=== PATIENT | female | born 1950 | race African-American/Black ===

== ENCOUNTER 2016-08-11 18:36 | Inpatient (IN) | payer OTHER ==
[~2016-08-11] VITALS: Ht 162.6 cm; Wt 91.2 kg
[~2016-08-11 18:36] MED LIST: ASPI325T70 PO; DULO20CA PO; GLIM1TAB2 PO; METF10002 PO; VITA1CAP PO
[2016-08-11 19:45] LABS: BASO # 0.1 x10^3/uL (0.0-0.2); BASO % 1 % (0-3); EOS % 2 % (0-3); HEMATOCRIT 40.2 % (36.0-47.0); HEMOGLOBIN 13.7 g/dL (12.0-15.5); LYMPH # 3.4 x10^3/uL (1.0-4.8); LYMPH % 49 % (24-48); MEAN CORPUSCULAR HEMOGLOBIN 31 pg (25-35); MEAN CORPUSCULAR HGB CONC 34 g/dL (31-37); MEAN CORPUSCULAR VOLUME 92 fL (79-100); MONO % 11 % (0-9); NEUT % 37 % (31-73); PLATELET COUNT 270 x10^3/uL (140-400); RED BLOOD COUNT 4.37 x10^6/uL (3.50-5.40); WHITE BLOOD COUNT 6.9 x10^3/uL (4.0-11.0)
[2016-08-11 19:59] LABS: CALCIUM 9.3 mg/dL (8.5-10.1); CREATININE 0.8 mg/dL (0.6-1.0); GFR 86.3; POTASSIUM 4.1 mmol/L (3.5-5.1)
[2016-08-11] MEDS ORDERED: ONDANSETRON PF 4 MG/2 ML VIAL. IV PRN ×2 (20:15→20:45)
[2016-08-11] MEDS ORDERED: ACETAMINOPHEN 325 MG TABLET. PO PRN ×2 (20:15→20:45)
--- NOTE | 2016-08-11 20:17 | PHYS DOC ---
Past Medical History Past Medical History: Bipolar, Depression, Diabetes-Type II, High Cholesterol, Hypertension, TIA Additional Past Medical Histor: ocd,obesity, CHRONIC BACK PAIN, MANIC DEPRESSION Past Surgical History: Tonsillectomy Additional Past Surgical Histo: R MENISCUS Alcohol Use: Rarely Drug Use: None Adult General Chief Complaint Chief Complaint: WEAKNESS/GENERALIZED HPI HPI This 58-year-old female who's noted last evening some left-sided weakness in her upper and lower extremities as well as some left-sided facial numbness. These symptoms persisted throughout the day and chief called the ask a nurse help line and they stated she should come to the ER immediately. Patient states she has history of "mini strokes". Patient is in no distress at this time and is able to follow my commands. She denies any specific complaints other than subjective weakness on her left side. Review of Systems Review of Systems Constitutional: Denies fever or chills [] Eyes: Denies change in visual acuity, redness, or eye pain [] HENT: Denies nasal congestion or sore throat [] Respiratory: Denies cough or shortness of breath [] Cardiovascular: No additional information not addressed in HPI [] GI: Denies abdominal pain, nausea, vomiting, bloody stools or diarrhea [] : Denies dysuria or hematuria [] Musculoskeletal: Denies back pain or joint pain [] Integument: Denies rash or skin lesions [] Neurologic: Denies headache, focal weakness or sensory changes [] Endocrine: Denies polyuria or polydipsia [] Allergies Allergies Allergies Coded Allergies Type Severity Reaction Last Updated Verified ibuprofen Allergy Unknown "ibuprofen 600 mg makes my left eye blurry" 08/11/16 Yes Physical Exam Physical Exam Constitutional: Well developed, well nourished, no acute distress, non-toxic appearance. [] HENT: Normocephalic, atraumatic, bilateral external ears normal, oropharynx moist, no oral exudates, nose normal. [] Eyes: PERRLA, EOMI, conjunctiva normal, no discharge. [] Neck: Normal range of motion, no tenderness, supple, no stridor. [] Cardiovascular:Heart rate regular rhythm, no murmur [] Lungs & Thorax: Bilateral breath sounds clear to auscultation [] Abdomen: Bowel sounds normal, soft, no tenderness, no masses, no pulsatile masses. [] Skin: Warm, dry, no erythema, no rash. [] Back: No tenderness, no CVA tenderness. [] Extremities: No tenderness, no cyanosis, no clubbing, ROM intact, no edema. [] Neurologic: Alert and oriented X 3, normal motor function, normal sensory function, no focal deficits noted. [] Psychologic: Affect normal, judgement normal, mood normal. [] Current Patient Data Vital Signs Vital Signs Date Time Temp Pulse Resp B/P Pulse Ox O2 Delivery O2 Flow Rate FiO2 08/11/16 19:44 61 133/74 98 Room Air 08/11/16 19:14 24 08/11/16 18:36 98.6 98.6 Lab Values Laboratory Tests Test 08/11/16 18:55 White Blood Count 6.9x10^3/uL (4.0-11.0) Red Blood Count 4.37x10^6/uL (3.50-5.40) Hemoglobin 13.7g/dL (12.0-15.5) Hematocrit 40.2% (36.0-47.0) Mean Corpuscular Volume 92fL (79-100) Mean Corpuscular Hemoglobin 31pg (25-35) Mean Corpuscular Hemoglobin Concent 34g/dL (31-37) Red Cell Distribution Width 13.0% (11.5-14.5) Platelet Count 270x10^3/uL (140-400) Neutrophils (%) (Auto) 37% (31-73) Lymphocytes (%) (Auto) 49% (24-48) H Monocytes (%) (Auto) 11% (0-9) H Eosinophils (%) (Auto) 2% (0-3) Basophils (%) (Auto) 1% (0-3) Neutrophils # (Auto) 2.6x10^3uL (1.8-7.7) Lymphocytes # (Auto) 3.4x10^3/uL (1.0-4.8) Monocytes # (Auto) 0.8x10^3/uL (0.0-1.1) Eosinophils # (Auto) 0.2x10^3/uL (0.0-0.7) Basophils # (Auto) 0.1x10^3/uL (0.0-0.2) Sodium Level 138mmol/L (136-145) Potassium Level 4.1mmol/L (3.5-5.1) Chloride Level 102mmol/L (98-107) Carbon Dioxide Level 27mmol/L (21-32) Anion Gap 9 (6-14) Blood Urea Nitrogen 14mg/dL (7-20) Creatinine 0.8mg/dL (0.6-1.0) Estimated GFR (Cockcroft-Gault) 86.3 Glucose Level 204mg/dL (70-99) H Calcium Level 9.3mg/dL (8.5-10.1) Troponin I Quantitative < 0.017ng/mL (0.000-0.055) Laboratory Tests 08/11/16 18:55 Laboratory Tests 08/11/16 18:55 EKG EKG EKG as interpreted by me shows a sinus rhythm with a rate of 60 bpm. There is leftward axis. There is some mild T-wave inversion to lead V2 and V3. There is no evidence of ischemic change. Intervals are normal. There is no ectopy. Radiology/Procedures Radiology/Procedures Portable 1 view of the chest as interpreted by me does not reveal an acute cardiopulmonary process. Course & Med Decision Making Course & Med Decision Making Pertinent Labs and Imaging studies reviewed. (See chart for details) 66-year-old female with subjective left-sided weakness will be admitted to the hospital for further evaluation and treatment. Her laboratory workup at this time is negative. Her EKG and chest film were unrevealing. A CT of her head was also obtained and is still pending at this time. I will be discussing her case with the hospitalist, Dr. Carvajal, who will admit the patient for further workup. Her NIH scale on my exam 0. She is not a TPA candidate due to the duration of her symptoms being well over the window of time. Dragon Disclaimer Dragon Disclaimer This electronic medical record was generated, in whole or in part, using a voice recognition dictation system. Departure Departure Impression: Primary Impression: TIA (transient ischemic attack) Additional Impression: Left-sided weakness Referrals: MARQUITA MAC (PCP) Problem Qualifiers DIMITRY CROFT DO Aug 11, 2016 20:16
--- NOTE | 2016-08-11 20:27 | RAD ---
PROCEDURE CT head without intravenous contrast. HISTORY Left-sided headache. Left body numbness and tingling. Symptoms began previous night. TECHNIQUE Axial images are obtained of the head from the skull base through the vertex without IV contrast Exposure: One or more of the following individualized dose reduction techniques were utilized for this examination: 1. Automated exposure control. 2. Adjustment of the mA and/or kV according to patient size. 3. Use of iterative reconstruction technique. COMPARISON None. FINDINGS The ventricles are appropriate in size, shape, and location for the patient's age.No obvious intracranial mass, mass-effect, midline shift, hemorrhage or obvious acute infarction is identified.Basilar cisterns are patent. Bone windows demonstrate no acute calvarial abnormality.Incompletely seen is left maxillary sinus disease.. IMPRESSION 1. No acute intracranial process. Please note that CT can be relatively insensitive to acute ischemic infarction for up to 24 hours after symptom onset. 2. Left maxillary sinus disease. Electronically signed by: Klaus Betancourt MD (Aug 11, 2016 20:25:21)
[2016-08-11] MEDS ORDERED: ASPIRIN 325 MG TABLET PO ONE (20:30)
[2016-08-11] MEDS ORDERED: HYDROCODONE/APAP 5/325MG TABLET. PO PRN (20:45)
[2016-08-11] MEDS ORDERED: DEXTROSE 50% 25 GM / 50ML DISP.SYRIN. IV PRN (20:45)
[2016-08-11] MEDS ORDERED: hydrALAZINE 20 MG/ML VIAL. IVP PRN (20:45)
--- NOTE | 2016-08-11 20:55 | PDOC1 ---
History and Physical Date of Admission Date of Admission 08/11/16 Identification/Chief Complaint Chief Complaint left side weakness Problems: Source Source: Chart review, Patient History of Present Illness History of Present Illness HPI HPI This 58-year-old female who's noted last evening some left-sided weakness in her upper and lower extremities as well as some left-sided facial numbness since last night. Pt has had previous 4 times of "mini stroke" in the past years, pt cannot tell met the 1st and the last time. She said ever since the 1st time of stroke, she felt some left side weakness when lifting things. However, last night about 6pm, she felt left side weakness worse, even without doing laboring things, with new left side facial numbness and left headache, which feels like pounding sometimes, worse with noise , not light, and had to stop activity. PT FEEls no improvement and comes to ER. no facial droop or slurry speech. seems pt was here 09/2015 for same reason with neg BRAIN MRI. Pt not taking asa or plavix, since she dosenot like meds, prefer herbs. Past Medical History Cardiovascular: HTN Endocrine: Diabetes, Other Past Surgical History Past Surgical History knee repair Past Surgical History: Tonsillectomy Family History Family History: Family History Unknown Social History Smoke: No ALCOHOL: none Drugs: None Current Problem List Problem List Problems Medical Problems: (1) Left-sided weakness Status: Acute (2) TIA (transient ischemic attack) Status: Acute Current Medications Current Medications Current Medications Medications (Trade) Dose Ordered Sig/Mejia Start Time Stop Time Status Last Admin Dose Admin Acetaminophen (Tylenol) 650 mg PRN Q6HRS PRN 08/11/16 20:45 UNV Acetaminophen/ Hydrocodone Bitart (Lortab 5/325) 1 tab PRN Q6HRS PRN 08/11/16 20:45 UNV Aspirin (Blayne Aspirin) 325 mg 1X ONCE 08/11/16 20:30 08/11/16 20:31 DC Aspirin (Children'S Aspirin) 81 mg DAILY 08/12/16 09:00 UNV Dextrose 12.5 gm PRN Q15MIN PRN 08/11/16 20:45 UNV Insulin Aspart (Novolog) 0-9 UNITS TIDWMEALS 08/12/16 08:00 UNV Ondansetron HCl (Zofran) 4 mg PRN Q6HRS PRN 08/11/16 20:45 UNV Allergies Allergies Allergies Coded Allergies Type Severity Reaction Last Updated Verified ibuprofen Allergy Unknown "ibuprofen 600 mg makes my left eye blurry" 08/11/16 Yes ROS Review of System CONSTITUTIONAL: No fever or chills EYES: No recent changes SKIN: No rash or itching CARDIOVASCULAR: No chest pain, syncope, palpitations, or edema RESPIRATORY: No SOB or cough GASTROINTESTINAL: No nausea, vomiting or abdominal pain NEUROLOGICAL: No headaches or weakness ENDOCRINE: No cold or heat intolerance GENITOURINARY: No urgency or frequency of urination MUSCULOSKELETAL: No back pain or joint pain LYMPHATICS: No enlarged lymph nodes PSYCHIATRIC: No anxiety or depression Physical Exam Physical Exam GEN.: No apparent distress. Alert and oriented. HEENT: Head is normocephalic, atraumatic NECK: Supple. LUNGS: Clear to auscultation. HEART: RRR, S1, S2 present. Peripheral pulses intact ABDOMEN: Soft, nontender. Positive bowel sounds. EXTREMITIES: Without any cyanosis. left upper ext mild weakner than right side, 4/5. left facial less sensation. no facial droop. NEUROLOGIC: Normal speech, normal tone PSYCHIATRIC: Normal affect, normal mood. SKIN: No ulcerations Vitals Vitals Vital Signs Date Time Temp Pulse Resp B/P Pulse Ox O2 Delivery O2 Flow Rate FiO2 08/11/16 19:44 61 133/74 98 Room Air 08/11/16 19:14 24 08/11/16 18:36 98.6 98.6 Labs Labs Laboratory Tests Test 08/11/16 18:55 White Blood Count 6.9x10^3/uL (4.0-11.0) Red Blood Count 4.37x10^6/uL (3.50-5.40) Hemoglobin 13.7g/dL (12.0-15.5) Hematocrit 40.2% (36.0-47.0) Mean Corpuscular Volume 92fL (79-100) Mean Corpuscular Hemoglobin 31pg (25-35) Mean Corpuscular Hemoglobin Concent 34g/dL (31-37) Red Cell Distribution Width 13.0% (11.5-14.5) Platelet Count 270x10^3/uL (140-400) Neutrophils (%) (Auto) 37% (31-73) Lymphocytes (%) (Auto) 49% (24-48) Monocytes (%) (Auto) 11% (0-9) Eosinophils (%) (Auto) 2% (0-3) Basophils (%) (Auto) 1% (0-3) Neutrophils # (Auto) 2.6x10^3uL (1.8-7.7) Lymphocytes # (Auto) 3.4x10^3/uL (1.0-4.8) Monocytes # (Auto) 0.8x10^3/uL (0.0-1.1) Eosinophils # (Auto) 0.2x10^3/uL (0.0-0.7) Basophils # (Auto) 0.1x10^3/uL (0.0-0.2) Sodium Level 138mmol/L (136-145) Potassium Level 4.1mmol/L (3.5-5.1) Chloride Level 102mmol/L (98-107) Carbon Dioxide Level 27mmol/L (21-32) Anion Gap 9 (6-14) Blood Urea Nitrogen 14mg/dL (7-20) Creatinine 0.8mg/dL (0.6-1.0) Estimated GFR (Cockcroft-Gault) 86.3 Glucose Level 204mg/dL (70-99) Calcium Level 9.3mg/dL (8.5-10.1) Troponin I Quantitative < 0.017ng/mL (0.000-0.055) Laboratory Tests Test 08/11/16 18:55 White Blood Count 6.9x10^3/uL (4.0-11.0) Red Blood Count 4.37x10^6/uL (3.50-5.40) Hemoglobin 13.7g/dL (12.0-15.5) Hematocrit 40.2% (36.0-47.0) Mean Corpuscular Volume 92fL (79-100) Mean Corpuscular Hemoglobin 31pg (25-35) Mean Corpuscular Hemoglobin Concent 34g/dL (31-37) Red Cell Distribution Width 13.0% (11.5-14.5) Platelet Count 270x10^3/uL (140-400) Neutrophils (%) (Auto) 37% (31-73) Lymphocytes (%) (Auto) 49% (24-48) Monocytes (%) (Auto) 11% (0-9) Eosinophils (%) (Auto) 2% (0-3) Basophils (%) (Auto) 1% (0-3) Neutrophils # (Auto) 2.6x10^3uL (1.8-7.7) Lymphocytes # (Auto) 3.4x10^3/uL (1.0-4.8) Monocytes # (Auto) 0.8x10^3/uL (0.0-1.1) Eosinophils # (Auto) 0.2x10^3/uL (0.0-0.7) Basophils # (Auto) 0.1x10^3/uL (0.0-0.2) Sodium Level 138mmol/L (136-145) Potassium Level 4.1mmol/L (3.5-5.1) Chloride Level 102mmol/L (98-107) Carbon Dioxide Level 27mmol/L (21-32) Anion Gap 9 (6-14) Blood Urea Nitrogen 14mg/dL (7-20) Creatinine 0.8mg/dL (0.6-1.0) Estimated GFR (Cockcroft-Gault) 86.3 Glucose Level 204mg/dL (70-99) Calcium Level 9.3mg/dL (8.5-10.1) Troponin I Quantitative < 0.017ng/mL (0.000-0.055) VTE Prophylaxis Ordered VTE Prophylaxis Devices: Yes VTE Pharmacological Prophylaxi: Yes Assessment/Plan Assessment/Plan 1. left side weakness and facial numbness, need to rule out stroke 2. h/o mini stroke with left side weakness 3. headche, likely migraine 4. bipolar 5. HTN 6. DM2 7. HLD 8. CHronic back pain plan: 1. neuro consult 2 brain mri 3. check hba1c, LIpid panel SSI cont home meds dvt ppx cont DYLAN Smart MD Aug 11, 2016 20:55
[2016-08-11 21:15] VITALS: BP_SYST 111; BP_SYST 114; BP_DIAS 59; BP_DIAS 60
[2016-08-11 23:11] VITALS: BP 111/59
--- NOTE | 2016-08-12 00:30 | ACF ---
Admission Forms Criteria TRANSIENT ISCHEMIC ATTACK (TIA) Clinical Indications for Admission to Inpatient Care (Place 'X' for any and all applicable criteria): Admission is indicated for ANY ONE of the following(1)(2)(3)(4)(5): [ ]I. Immediate inpatient procedure is needed (eg, endarterectomy). [X]II. Inpatient admission required rather than observation care (Also use Transient Ischemic Attack (TIA): Observation Care Criteria as appropriate) because of ANY ONE of the following: [X]a) Focal neurologic signs or symptoms persist or recurring [ ]b) Cardiac arrhythmias of immediate concern [ ]c) Clinically significant cardiac disorder identified that requires inpatient care (eg, severe valvular disease, atrial myxoma, cardiomyopathy) [ ]d) Hypertension requiring inpatient treatment [ ]e) Parenteral anticoagulation required (eg, alternative forms of anticoagulation not appropriate or not feasible) as indicated by ALL of the following(13): [ ]i) Temporary subtherapeutic anticoagulation unacceptable because of high risk of short-term venous or arterial thromboembolism due to ANY ONE of the following(14)(15)(16): [ ]1) Atrial fibrillation suspected as etiology of TIA(17)(18)(19)(20)(21) [ ]2) Venous thromboembolism within past 12 months [ ]3) Underlying malignancy [ ]4) Patient with mechanical cardiac valve(22)( 23) [ ]5) Underlying hypercoagulable state (eg, protein C or protein S deficiency antithrombin deficiency, antiphospholipid antibodies) [ ]6) Patient at temporary high risk of thromboembolism (eg, status post orthopedic surgery) [ ]ii) Contraindications to outpatient use of "bridging" agent or alternative oral anticoagulant[B] as indicated by ALL of the following: [ ]1) Contraindication to outpatient use of low- molecular-weight heparin as "bridging" agent as indicated by ANY ONE of the following(15): [ ]A. Documented current or history of heparin-induced thrombocytopenia(24) [ ]B. Severe thrombocytopenia (eg, platelet count less than 50,000/mm3 (44v360/L) [ ]C. Documented allergy to heparin, low- molecular-weight heparin, or pork products [ ]D. Renal failure (creatinine clearance less than 30 mL/min/1.73m2 (0.50mL/sec/1.73m2) or on dialysis) [ ]E. Inability to manage self-injection ( eg, by patient, caregiver, or visiting nurse) [ ]2) Contraindication to outpatient use of fondaparinux as "bridging" agent as indicated by ANY ONE of the following(25)(26 )(27)(28): [ ]A. Severe thrombocytopenia (eg, platelet count less than 50,000/mm3 (50 x109/L)) [ ]B.Hypersensitivity to fondaparinux, related drugs, or product components [ ]C.Renal failure (creatinine clearance less than 30 mL/min/1.73m2 (0.50mL/sec/1.73m2) or on dialysis) [ ]D.Inability to manage self-injection ( eg, by patient, caregiver, or visiting nurse [ ]3. Oral direct thrombin inhibitor (eg, dabigatran) or oral coagulation factor Xa inhibitor (eg, rivaroxaban, apixaban) not appropriate as oral anticoagulation (eg, indication not appropriate) or contraindicated (eg, hypersensitivity, creatinine clearance less than 15 mL/min/1.73m2 ( 0.25 mL/sec/1.73m2) or on dialysis). [ ]f) Continuous IV infusion of anticoagulant, platelet inhibitor, vasoactive or antiarrhythmia(18)(19) [ ]g) Other condition, treatment, or monitoring requiring inpatient admission [ ]III. Contraindications and/or Inappropriate clinical situations for Observational Care in patients with Transient Ischemic Attack (TIA), when ANY ONE of the following is required: [ ]a) Patient with persistent or severe neurological deficit 24 [ ]b) Patient with acute CVA or other identified pathology should be admitted to inpatient for further care 25 [ ]IV. General contraindications and/or Inappropriate clinical situations for Observational Care in patients with Transient Ischemic Attack (TIA), when ANY ONE of the following is required: [ ]a) Prediction of prolongation of LOS based on ANY ONE of the following may be considered as a contraindication for observational care 2, 3, 4, 5, 6, 7, 8, 9, 10, 11 [ ]i) Age > 65 yrs. [ ]ii) Patient arriving by ambulance [ ]iii) Patient with high acuity [ ]iv) Patient requiring vital sign monitoring [ ]v) Patient on IV medication [ ]b) Systolic blood pressures 180mmHg 3,12 [ ]c) Patient with altered mental status including delirium and other alteration of consciousness, (3) [ ]d) Patient whose discharge disposition will be to a [facility] home or rehabilitation home should not be managed in Emergency Department Observation Unit. CMS rule requires 3 days hospital stay before such placement.3,13 [ ]e) Patient with failure to thrive due to broad array of etiologies 3,16,17 [ ]f) Inability to ambulate 3,14 Extended stay beyond goal length of stay may be needed for(4)(30)(32): [ ]a) Parenteral anticoagulation required [ ]b) Dangerous arrhythmia [ ]c) Cardiac valvular disorder, atrial myxoma, cardiomyopathy [ ]d) Uncontrolled severe hypertension [ ]e) Severe carotid stenosis [ ]f) Active comorbidities (eg, heart failure) [ ]g) Extracranial vertebrobasilar disease(29) [ ]h) Clinical evolution of TIA into cerebrovascular accident (stroke) The original [facility] content created by [employer] ??? has been revised. The portions of thecontent which have been revised are identified through the use of italic text or in bold, and [facility] has neither reviewed nor approved the modified material. All other unmodified content is copyright [facility]. Please see references footnoted in the original [facility] edition 2016 Admission Criteria Met?: Yes KARI ISSA Aug 12, 2016 00:30
[2016-08-12 03:12] VITALS: BP 98/45
--- NOTE | 2016-08-12 06:31 | EKG ---
[facility] [address] [place] [address] Test Date: 2016-08-11 Test Time: 19:16:54 Pat Name: BRUNO GUTIERREZ Department: Room: [facility] Gender: F [employer] Developer: : [id number] Requested By: DIMITRY CROFT Order Number: [id number] Reading MD: Ludmila Mccormick Measurements Intervals [place] Rate: 60 P: 0 CO: 212 QRS: -3 QRSD: 88 T: 16 QT: 412 QTc: 412 Interpretive Statements SINUS RHYTHM OTHERWISE NORMAL ECG RI6.01 No previous ECG available for comparison Electronically Signed On 08-13-2016 0:42:00 [employer]SELOR [employer]ID by Ludmila Mccormick
[2016-08-12 06:42] LABS: BASO # 0.1 x10^3/uL (0.0-0.2); BASO % 1 % (0-3); EOS % 3 % (0-3); HEMATOCRIT 38.4 % (36.0-47.0); HEMOGLOBIN 12.8 g/dL (12.0-15.5); LYMPH # 3.7 x10^3/uL (1.0-4.8); LYMPH % 52 % (24-48); MEAN CORPUSCULAR HEMOGLOBIN 31 pg (25-35); MEAN CORPUSCULAR HGB CONC 33 g/dL (31-37); MEAN CORPUSCULAR VOLUME 94 fL (79-100); MONO % 10 % (0-9); NEUT % 35 % (31-73); PLATELET COUNT 238 x10^3/uL (140-400); RED BLOOD COUNT 4.09 x10^6/uL (3.50-5.40); RED CELL DISTRIBUTION WIDTH 13.2 % (11.5-14.5); WHITE BLOOD COUNT 7.2 x10^3/uL (4.0-11.0)
[2016-08-12 07:00] VITALS: BP 96/65
[2016-08-12 07:00] LABS: CALCIUM 8.6 mg/dL (8.5-10.1); CREATININE 0.9 mg/dL (0.6-1.0); GFR 75.3; POTASSIUM 4.2 mmol/L (3.5-5.1)
[2016-08-12 07:02] LABS: CHOLESTEROL/HDL RATIO 3.9
[2016-08-12] MEDS ORDERED: INSULIN ASPART 300 UNITS/3 ML INSULN.PEN SQ SCH (08:00)
[2016-08-12] MEDS ORDERED: GLIMEPIRIDE 2 MG TABLET PO SCH (08:00)
[2016-08-12] MEDS ORDERED: ASPIRIN 81 MG TAB.CHEW PO SCH (08:00)
[2016-08-12] MEDS: METFORMIN 1,000 MG TABLET PO SCH ×2 (08:35→17:46)
--- NOTE | 2016-08-12 08:39 | RAD ---
Portable AP upright view CXR: 1950 on August 11, 2016 Comparison: October 03, 2015. Clinical indications: Left-sided weakness. History of strokes.. Findings: No acute lung infiltrate or pleural effusion or pulmonary edema or lung mass or pneumothorax is seen. The heart size, pulmonary vasculature, mediastinum and both mitchell are unremarkable. Impression: No acute radiographic abnormality is seen.
[2016-08-12] MEDS: INSULIN ASPART 300 UNITS/3 ML INSULN.PEN SQ SCH ×3 (08:42→17:52)
[2016-08-12] MEDS ORDERED: FLU VACC QUAD 2016-17 (36MOS+)/PF 0.5 ML SYRINGE. VAX IM ONE (09:00)
[2016-08-12] MEDS ORDERED: VITAMIN B COMPLEX TABLET. PO SCH (09:00)
[2016-08-12] MEDS ORDERED: DULOXETINE HCL 20 MG CAPSULE.DR PO SCH (09:00)
[2016-08-12] MEDS ORDERED: ENOXAPARIN 40 MG/0.4 ML DISP.SYRIN. SQ SCH (09:00)
[2016-08-12] MEDS ORDERED: INFLUENZA VAX SCREEN BY RX. MC ONE (09:00)
--- NOTE | 2016-08-12 10:14 | RAD ---
PROCEDURE MRI brain without contrast. HISTORY Left-sided weakness for 2 days, history of previous stroke in 2015 TECHNIQUE Sagittal and axial T1, axial and coronal T2, axial diffusion, axial FLAIR, and axial gradient echo T2 weighted images were acquired of the brain. COMPARISON October 04, 2015 FINDINGS There is mild motion. There is no restricted diffusion suggestive of a recent infarct or cytotoxic edema. There is no intra-axial mass effect, midline shift, extra-axial fluid collection. Ventricular size is stable, within normal limits. Cerebral volume is considered within normal limits. There are again several small foci of T2 and FLAIR hyperintense signal abnormality of the supratentorial white matter in a bilateral distribution, overall similar in extent. There is no significant hemosiderin deposition of the brain parenchyma. Cerebellar tonsils are normal in location. There is preservation of marrow signal of the clivus. There is no significant abnormality of the small pituitary gland or pineal gland. There has been lens surgery bilaterally. There is a small air-fluid level of the left maxillary sinus, although present previously. There is patchy very minimal ethmoid air cell mucosal thickening. Mastoid air cells are aerated. IMPRESSION 1. There is no evidence of recent infarct or intracranial mass effect. Scattered relatively mild T2 and FLAIR hyperintense signal abnormality of the supratentorial white matter is similar, nonspecific findings which may be due to chronic microvascular ischemic disease. 2. There is again air-fluid level of the left maxillary sinus, acute sinusitis a possibility. Electronically signed by: Miguelito Gonzalez MD (Aug 12, 2016 10:13:35)
[2016-08-12 10:53] VITALS: BP 96/57
--- NOTE | 2016-08-12 11:19 | PDOC2 ---
NEUROLOGY CONSULT Date of Admission Date of Admission DATE: 08/12/16 TIME: 11:10 Reason for Consult Reason for Consult: Stroke symptoms Referring Physician Referring Physician: Dr. Carvajal PCP: Dr. Buckley Source Source: Caregiver, Chart review, Patient History of Present Illness History of Present Illness The patient is a 66-year-old right-handed female who 2 nights ago noted left sided numbness and weakness. She had a headache. She came in yesterday since the symptoms persisted. She was here in September with the same symptoms with a negative brain MRI but further stroke workup was not done. The patient says that she has had a total of 4 "mini strokes." These are often associated with headaches. She does describe severe headaches in the past but was never diagnosed with migraine. She has a history of petit mal seizures as a child which stopped at age 12. She has had no significant head injuries. She feels fine now. Past Medical History Cardiovascular: HTN, Hyperlipidemia CENTRAL NERVOUS SYSTEM: TIA Psych: Bipolar, Other (obsessive-compulsive disorder) Musculoskeletal: low back pain Endocrine: Diabetes Past Surgical History Past Surgical History: Tonsillectomy Family History Family History: Cancer, CVA Social History Social History She finished college, but describes cognitive problems which have left her disabled, apparently from her psychiatric disorder. She does not use alcohol, tobacco, or drugs. She lives with her son. Current Medications Current Medications Current Medications Ondansetron HCl (Zofran) 4 mg PRN Q8HRS PRN IV NAUSEA/VOMITING; Start 08/11/16 at 20:15; Stop 08/12/16 at 10:51; Status DC Acetaminophen (Tylenol) 650 mg PRN Q4HRS PRN PO FEVER; Start 08/11/16 at 20:15 ; Stop 08/12/16 at 10:51; Status DC Aspirin (Blayne Aspirin) 325 mg 1X ONCE PO Last administered on 08/11/16t 20:57 ; Start 08/11/16 at 20:30; Stop 08/11/16 at 20:31; Status DC Aspirin (Children'S Aspirin) 81 mg DAILY08 PO Last administered on 08/12/16t 08 :36; Start 08/12/16 at 08:00 Acetaminophen (Tylenol) 650 mg PRN Q6HRS PRN PO FEVER; Start 08/11/16 at 20:45 Ondansetron HCl (Zofran) 4 mg PRN Q6HRS PRN IV NAUSEA/VOMITING; Start 08/11/16 at 20:45 Acetaminophen/ Hydrocodone Bitart (Lortab 5/325) 1 tab PRN Q6HRS PRN PO PAIN; Start 08/11/16 at 20:45 Insulin Aspart (Novolog) 0-9 UNITS TIDWMEALS SQ ; Start 08/12/16 at 08:00; Stop 08/12/16 at 08:00; Status DC Dextrose 12.5 gm PRN Q15MIN PRN IV SEE COMMENTS; Start 08/11/16 at 20:45 Insulin Aspart (Novolog) 0-9 UNITS QIDACHS SQ Last administered on 08/12/16 08 :42; Start 08/12/16 at 08:00 Hydralazine HCl (Apresoline) 10 mg PRN Q4HRS PRN IVP ELEVATED BP, SEE COMMENTS ; Start 08/11/16 at 20:45 Enoxaparin Sodium (Lovenox 40mg Syringe) 40 mg DAILY SQ Last administered on 08:35; Start 08/12/16 at 09:00 Duloxetine HCl (Cymbalta) 20 mg DAILY PO Last administered on 08/12/16 08:31; Start 08/12/16 at 09:00 Metformin HCl (Glucophage) 1,000 mg BIDWMEALS PO Last administered on 08:35; Start 08/12/16 at 08:00 Glimepiride (Amaryl) 1 mg DAILY08 PO Last administered on 08/12/16 08:35; Start 08/12/16 at 08:00; Stop 08/12/16 at 10:45; Status DC Vitamin B Complex (Jovan B) 1 tab DAILY PO Last administered on 08/12/16 08:34 ; Start 08/12/16 at 09:00 Info (Do NOT chart on this placeholder) 0.5 each 1X ONCE MC ; Start 08/12/16 at 09:00; Stop 08/12/16 at 09:01; Status UNV Influenza Virus Vaccine Quadrival (Fluarix Quad [id number] Syringe) 0.5 ml ONCE ONCE VAX IM ; Start 08/12/16 at 09:00; Stop 08/12/16 at 09:01; Status DC Glimepiride (Amaryl) 2 mg DAILY08 PO ; Start 08/13/16 at 08:00 Atorvastatin Calcium (Lipitor) 40 mg QHS PO ; Start 08/12/16 at 21:00 Active Scripts Active Aspirin Buffered 325 Mg Tab (Aspirin/Calcium Carbonate/Mag) 325 Mg Tablet 325 Mg PO DAILY Cymbalta (Duloxetine Hcl) 20 Mg Capsule.dr 1 Cap PO DAILY Reported Vitamin B Complex 1 Each Capsule 1 Each PO BID Glimepiride 1 Mg Tablet 1 Tab PO DAILY Metformin Hcl 1,000 Mg Tablet 1 Tab PO BID Allergies Allergies: Coded Allergies: ibuprofen (Verified Allergy, Intermediate, "ibuprofen 600 mg makes my left eye blurry", 08/12/16) ROS Review of System Patient denies fevers, chills, weight loss, dyspnea, angina, abdominal pain, change in bowels, or dysuria. 14 point review of systems is negative. Physical Exam Physical Examination PHYSICAL EXAMINATION: Vital signs: see above. General appearance is normal and in no acute distress. HEENT: Normocephalic and nontraumatic. Eyes, nose, ears, and throat are unremarkable. Neck is supple. No lymphadenopathy. No bruits are heard over the carotid artery. No crepitus. NEUROLOGICAL EXAMINATION: Mental Status Examination: Alert. Oriented to time, place, and person. Answers questions and follows commends. Pupils are equal round and reactive to light and accommodation. Funduscopic exam: No papilledema. Extraocular movements are intact. Visual field exam shows no defect on the direct confrontation. No motor or sensory deficits on the facial exam. Uvula in the midline and the soft palate elevated symmetrically. No deviation of the tongue to any direction. Gross hearing is normal. Shoulder shrug normal. Muscle tone is normal. Muscle strength is 5. Deep tendon reflexes are 2+ all around. Plantar reflex is with flexion response bilaterally. [id number] test performance is accurate. Tandem walk test is accurate. Alternative movements are accurate. Romberg test is negative. Gait is normal. Sensory exam shows stocking loss. No cerebellar signs are elicited. Vitals VITALS Vital Signs Date Time Temp Pulse Resp B/P Pulse Ox O2 Delivery O2 Flow Rate FiO2 08/12/16 10:53 97.7 77 14 96/57 98 Room Air 97.7 Labs Labs Laboratory Tests Test 08/11/16 18:55 08/11/16 22:25 08/12/16 05:45 08/12/16 08:25 White Blood Count 6.9x10^3/uL (4.0-11.0) 7.2x10^3/uL (4.0-11.0) Red Blood Count 4.37x10^6/uL (3.50-5.40) 4.09x10^6/uL (3.50-5.40) Hemoglobin 13.7g/dL (12.0-15.5) 12.8g/dL (12.0-15.5) Hematocrit 40.2% (36.0-47.0) 38.4% (36.0-47.0) Mean Corpuscular Volume 92fL (79-100) 94fL (79-100) Mean Corpuscular Hemoglobin 31pg (25-35) 31pg (25-35) Mean Corpuscular Hemoglobin Concent 34g/dL (31-37) 33g/dL (31-37) Red Cell Distribution Width 13.0% (11.5-14.5) 13.2% (11.5-14.5) Platelet Count 270x10^3/uL (140-400) 238x10^3/uL (140-400) Neutrophils (%) (Auto) 37% (31-73) 35% (31-73) Lymphocytes (%) (Auto) 49% (24-48) 52% (24-48) Monocytes (%) (Auto) 11% (0-9) 10% (0-9) Eosinophils (%) (Auto) 2% (0-3) 3% (0-3) Basophils (%) (Auto) 1% (0-3) 1% (0-3) Neutrophils # (Auto) 2.6x10^3uL (1.8-7.7) 2.5x10^3uL (1.8-7.7) Lymphocytes # (Auto) 3.4x10^3/uL (1.0-4.8) 3.7x10^3/uL (1.0-4.8) Monocytes # (Auto) 0.8x10^3/uL (0.0-1.1) 0.7x10^3/uL (0.0-1.1) Eosinophils # (Auto) 0.2x10^3/uL (0.0-0.7) 0.2x10^3/uL (0.0-0.7) Basophils # (Auto) 0.1x10^3/uL (0.0-0.2) 0.1x10^3/uL (0.0-0.2) Sodium Level 138mmol/L (136-145) 137mmol/L (136-145) Potassium Level 4.1mmol/L (3.5-5.1) 4.2mmol/L (3.5-5.1) Chloride Level 102mmol/L (98-107) 102mmol/L (98-107) Carbon Dioxide Level 27mmol/L (21-32) 27mmol/L (21-32) Anion Gap 9 (6-14) 8 (6-14) Blood Urea Nitrogen 14mg/dL (7-20) 14mg/dL (7-20) Creatinine 0.8mg/dL (0.6-1.0) 0.9mg/dL (0.6-1.0) Estimated GFR (Cockcroft-Gault) 86.3 75.3 Glucose Level 204mg/dL (70-99) 242mg/dL (70-99) Calcium Level 9.3mg/dL (8.5-10.1) 8.6mg/dL (8.5-10.1) Troponin I Quantitative < 0.017ng/mL (0.000-0.055) Glucose (Fingerstick) 245mg/dL (70-99) 233mg/dL (70-99) Triglycerides Level 142mg/dL (0-150) Cholesterol Level 225mg/dL (0-200) LDL Cholesterol, Calculated 140mg/dL (0-100) VLDL Cholesterol, Calculated 28mg/dL (0-40) HDL Cholesterol 57mg/dL (40-60) Cholesterol/HDL Ratio 3.9 Laboratory Tests Test 08/11/16 18:55 08/11/16 22:25 08/12/16 05:45 08/12/16 08:25 White Blood Count 6.9x10^3/uL (4.0-11.0) 7.2x10^3/uL (4.0-11.0) Red Blood Count 4.37x10^6/uL (3.50-5.40) 4.09x10^6/uL (3.50-5.40) Hemoglobin 13.7g/dL (12.0-15.5) 12.8g/dL (12.0-15.5) Hematocrit 40.2% (36.0-47.0) 38.4% (36.0-47.0) Mean Corpuscular Volume 92fL (79-100) 94fL (79-100) Mean Corpuscular Hemoglobin 31pg (25-35) 31pg (25-35) Mean Corpuscular Hemoglobin Concent 34g/dL (31-37) 33g/dL (31-37) Red Cell Distribution Width 13.0% (11.5-14.5) 13.2% (11.5-14.5) Platelet Count 270x10^3/uL (140-400) 238x10^3/uL (140-400) Neutrophils (%) (Auto) 37% (31-73) 35% (31-73) Lymphocytes (%) (Auto) 49% (24-48) 52% (24-48) Monocytes (%) (Auto) 11% (0-9) 10% (0-9) Eosinophils (%) (Auto) 2% (0-3) 3% (0-3) Basophils (%) (Auto) 1% (0-3) 1% (0-3) Neutrophils # (Auto) 2.6x10^3uL (1.8-7.7) 2.5x10^3uL (1.8-7.7) Lymphocytes # (Auto) 3.4x10^3/uL (1.0-4.8) 3.7x10^3/uL (1.0-4.8) Monocytes # (Auto) 0.8x10^3/uL (0.0-1.1) 0.7x10^3/uL (0.0-1.1) Eosinophils # (Auto) 0.2x10^3/uL (0.0-0.7) 0.2x10^3/uL (0.0-0.7) Basophils # (Auto) 0.1x10^3/uL (0.0-0.2) 0.1x10^3/uL (0.0-0.2) Sodium Level 138mmol/L (136-145) 137mmol/L (136-145) Potassium Level 4.1mmol/L (3.5-5.1) 4.2mmol/L (3.5-5.1) Chloride Level 102mmol/L (98-107) 102mmol/L (98-107) Carbon Dioxide Level 27mmol/L (21-32) 27mmol/L (21-32) Anion Gap 9 (6-14) 8 (6-14) Blood Urea Nitrogen 14mg/dL (7-20) 14mg/dL (7-20) Creatinine 0.8mg/dL (0.6-1.0) 0.9mg/dL (0.6-1.0) Estimated GFR (Cockcroft-Gault) 86.3 75.3 Glucose Level 204mg/dL (70-99) 242mg/dL (70-99) Calcium Level 9.3mg/dL (8.5-10.1) 8.6mg/dL (8.5-10.1) Troponin I Quantitative < 0.017ng/mL (0.000-0.055) Glucose (Fingerstick) 245mg/dL (70-99) 233mg/dL (70-99) Triglycerides Level 142mg/dL (0-150) Cholesterol Level 225mg/dL (0-200) LDL Cholesterol, Calculated 140mg/dL (0-100) VLDL Cholesterol, Calculated 28mg/dL (0-40) HDL Cholesterol 57mg/dL (40-60) Cholesterol/HDL Ratio 3.[address] head: 1. No acute intracranial process. Please note that CT can be relatively insensitive to acute ischemic infarction for up to 24 hours after symptom onset. 2. Left maxillary sinus disease. MRI brain: 1. There is no evidence of recent infarct or intracranial mass effect. Scattered relatively mild T2 and FLAIR hyperintense signal abnormality of the supratentorial white matter is similar, nonspecific findings which may be due to chronic microvascular ischemic disease. 2. There is again air-fluid level of the left maxillary sinus, acute sinusitis a possibility. Carotid Dopplers, negative to my eye, radiology interpretation pending Assessment/Plan Assessment/Plan Impression: Stroke symptoms, negative workup so far here as well as in March, I wonder if the symptoms are related to migraine as she does have associated headache. Psychogenic cause is possible Diabetic neuropathy Psychiatric disease to the point where she became disabled due to cognitive problems Sinus disease on imaging studies. Recommendations: MRI, carotid Dopplers, already done, awaiting echocardiogram She has been on Plavix in the past but prefers not to take medicines. I encouraged her to resume Plavix. Rehabilitation evaluation Discharge as soon as later today if rehabilitation evaluation and the rest of her studies are negative. Follow-up with neurology as needed. Treatment of sinus disease per primary service. This appears to be asymptomatic. Thank you for letting me help with the patient's care. ITALIA HODGES MD Aug 12, 2016 11:19
[2016-08-12] MEDS ORDERED: DULO20CA PO (11:36)
[2016-08-12] MEDS ORDERED: ATOR40TA59 PO (11:36)
[2016-08-12] MEDS ORDERED: GLIM2TAB PO (11:36)
[2016-08-12] MEDS ORDERED: METF10002 PO (11:36)
[2016-08-12] MEDS ORDERED: CLOP75TA PO (11:36)
[2016-08-12] MEDS ORDERED: VITA1TAB3 PO (11:36)
[2016-08-12] MEDS ORDERED: CLOPIDOGREL BISULFATE 75 MG TABLET PO SCH (12:00)
--- NOTE | 2016-08-12 12:02 | RAD ---
Indication TIA. Grayscale color Doppler and spectral imaging was performed. The examination was targeted to the carotid bifurcations. The examination in the left neck is limited. The patient had a high bifurcation on the left. On the right there was no significant plaquing. The color Doppler images do not suggest significant turbulence. The external carotid has a normal appearance. The internal carotid waveform and velocities are normal. The vertebral is patent and demonstrates normal antegrade flow. On the left the color Doppler images do not suggest significant turbulence. Marked atherosclerotic disease is not seen. The common carotid waveform and velocities are unremarkable. Those very limited portions of the external and internal carotid arteries which were seen appeared grossly normal. The vertebral is seen and demonstrates normal antegrade flow. IMPRESSION: Significantly limited evaluation of the left carotid bifurcation secondary to the high nature of the bifurcation. Definite significant disease on the left was not seen. No evidence of hemodynamically significant stenosis at the right carotid bifurcation Note: Stenosis calculations for CT, MR and conventional angiography are based upon determination of the distal ICA diameter in accordance with the NASCET methodology. Stenosis calculations for doppler studies are derived from validated velocity criteria which are known to correlate with NASCET methodology of determining stenosis.
--- NOTE | 2016-08-12 12:29 | PDOC3 ---
Discharge Summary [facility] Date of Admission: Aug 11, 2016 Discharge Date: Aug 12, 2016 Admitting Diagnosis 1. left side weakness and facial numbness , could be 2/2 migraine or psychogenic 2. h/o mini stroke with left side weakness 3. headche, likely migraine 4. bipolar 5. HTN 6. DM2 7. HLD 8. CHronic back pain 9. NON compliant with meds Problems: Final Diagnosis Problems Medical Problems: (1) Left-sided weakness Status: Acute (2) TIA (transient ischemic attack) Status: Acute CONSULTS [facility] Brief Hospital Course This 58-year-old female who's noted last evening some left-sided weakness in her upper and lower extremities as well as some left-sided facial numbness since last night. Pt has had previous 4 times of "mini stroke" in the past years, pt cannot tell met the 1st and the last time. She said ever since the 1st time of stroke, she felt some left side weakness when lifting things. However, last night about 6pm, she felt left side weakness worse, even without doing laboring things, with new left side facial numbness and left headache, which feels like pounding sometimes, worse with noise , not light, and had to stop activity. PT FEEls no improvement and comes to ER. no facial droop or slurry speech. seems pt was here 09/2015 for same reason with neg BRAIN MRI. Pt not taking asa or plavix nor other meds for DM2 since she dosenot like meds, prefer herbs. PT FEEls better today, sill mild left side weakness and facial numbness, but exam is better MRI brain neg, carotid US neg. Echo pending. dc home after Echo, with plavix, lipitor, meds for DM2. asked pt and her son many times she needs totake her meds. dc time 35min GEN.: No apparent distress. Alert and oriented. HEENT: Head is normocephalic, atraumatic NECK: Supple. LUNGS: Clear to auscultation. HEART: RRR, S1, S2 present. Peripheral pulses intact ABDOMEN: Soft, nontender. Positive bowel sounds. EXTREMITIES: Without any cyanosis. left upper ext mild weakner than right side, 4/5. left facial less sensation. no facial droop. NEUROLOGIC: Normal speech, normal tone PSYCHIATRIC: Normal affect, normal mood. SKIN: No ulcerations Patient History: Problems: Disposition home CONDITION AT DISCHARGE: Improved, Stable Diet regular Scheduled Atorvastatin Calcium (Atorvastatin Calcium) 40 MG PO QHS Clopidogrel Bisulfate (Clopidogrel) 75 MG PO DAILYWBKFT Duloxetine Hcl (Cymbalta) 20 MG PO DAILY Glimepiride (Amaryl) 1 MG PO DAILY08 Metformin Hcl (Metformin Hcl) 1,000 MG PO BIDWMEALS Vitamin B Complex (Vitamin B Complex) 1 TAB PO DAILY Discontinued Medications Aspirin/Calcium Carbonate/Mag (Aspirin Buffered 325 Mg Tab) 325 MG PO DAILY Duloxetine Hcl (Cymbalta) 1 CAP PO DAILY Glimepiride (Glimepiride) 1 TAB PO DAILY (Reported) Metformin Hcl (Metformin Hcl) 1 TAB PO BID (Reported) Vitamin B Complex (Vitamin B Complex) 1 EACH PO BID (Reported) Follow Up pcp and neuro in 2 weeks DYLAN VAZQUEZ MD Aug 12, 2016 12:29
[2016-08-12 15:05] VITALS: BP 115/68
--- NOTE | 2016-08-12 15:52 | CARD ---
APPROVED REPORT EXAM: Two-dimensional and M-mode echocardiogram with Doppler and color Doppler. Other Information Quality : Average Rhythm : NSR INDICATION CVA/TIA Echo Enhancing Agent Indication: Rule Out Septal Defect Agent/Amount Used: Agitated Saline 8mL 2D DIMENSIONS RVDd2.4 (2.9-3.5cm)Left Atrium(2D)3.0 (1.6-4.0cm) IVSd1.2 (0.7-1.1cm)Aortic Root(2D)2.7 (2.0-3.7cm) LVDd3.8 (3.9-5.9cm)LVOT Diameter2.0 (1.8-2.4cm) PWd1.2 (0.7-1.1cm)LVDs2.3 (2.5-4.0cm) FS (%) 29.8 %SV45.1 ml LVEF(%)61.1 (>50%) Aortic Valve AoV Peak Shayan.111.7cm/sAoV VTI18.6cm AO Peak GR.5.0mmHgLVOT Peak Shayan.80.6cm/s LVOT VTI 16.57cmAO Mean GR.3mmHg MARIA LUISA (VMAX)2.61ws9ZOP (VTI)2.92cm2 Mitral Valve MV E Ghxckhgy24.1cm/sMV DECEL [id number] MV A Flzsihzi97.8cm/sMV E Mean Gr.1mmHg MV XJH492hgP/A Ratio0.8 MV A [id number] (PHT)1.86cm2 TDI E/Lateral E'8.0E/Medial E'6.9 Pulmonary Valve PV Peak Gxjjqhlh20.7cm/sPV Peak Grad.2mmHg RVOT VTI11.0cm Tricuspid Valve TR P. [id number]/sRAP [id number] TR Peak Gr.63snHzGAFI92alCq LEFT VENTRICLE The left ventricle is normal size. There is borderline concentric left ventricular hypertrophy. Left ventricle systolic function is normal. The Ejection Fraction is 60-65%. There is normal LV segmental wall motion. Tissue Doppler imaging reveals mild left ventricular diastolic dysfunction. RIGHT VENTRICLE The right ventricle is normal size. The right ventricular systolic function is normal. ATRIA The left atrium size is normal. The right atrium size is normal. The interatrial septum is intact wit h no evidence for an atrial septal defect or patent foramen ovale as noted on 2-D or Doppler imaging. Injection of bubbles did not document an interatrial shunt. AORTIC VALVE The aortic valve is normal in structure and function. The aortic valve is trileaflet. Doppler and Col or Flow revealed no significant aortic regurgitation. There is no significant aortic valvular stenosi s. MITRAL VALVE The mitral valve is normal in structure and function. There is no mitral valve stenosis. Doppler and Color Flow revealed no mitral valve regurgitation noted. TRICUSPID VALVE The tricuspid valve is normal in structure and function. Doppler and Color Flow revealed trace to mil d tricuspid regurgitation. The PA pressure was estimated at 29 mmHg. There is no tricuspid valve sten osis. PULMONIC VALVE The pulmonic valve is not well visualized. Doppler and Color Flow revealed no pulmonic valvular regur gitation. There is no pulmonic valvular stenosis. GREAT VESSELS The aortic root is normal in size. Pulmonary veins not well visualized. The IVC is normal in size and collapses >50% with inspiration. PERICARDIAL EFFUSION There is no evidence of significant pericardial effusion. Critical Notification Critical Value: No <Conclusion> Left ventricle systolic function is normal. The Ejection Fraction is 60-65%. There is normal LV segmental wall motion. Negative bubble study. No significant valvular disease.
[2016-08-12] MEDS ORDERED: ATORVASTATIN CALCIUM 40 MG TABLET. PO SCH (21:00)
[2016-08-13] MEDS ORDERED: GLIMEPIRIDE 2 MG TABLET PO SCH ×2 (08:00)
== END 2016-08-12 18:45 | disposition home or self-care (01) | DRG 103 ==
LOC: ER 18:36 → 6 SOUTH 20:07
PROVIDERS: ADMIT Internal Medicine; ATTEND Internal Medicine
DX: G43.909 Migraine, unspecified, not intractable, without status migrainosus (principal); E78.00 Pure hypercholesterolemia, unspecified; E78.5 Hyperlipidemia, unspecified; F42.9 Obsessive-compulsive disorder, unspecified; G89.29 Other chronic pain; E66.9 Obesity, unspecified; E11.40 Type 2 diabetes mellitus with diabetic neuropathy, unspecified; F32.9 Major depressive disorder, single episode, unspecified; M54.5 Low back pain; I10 Essential (primary) hypertension; Z82.3 Family history of stroke; Z86.73 Personal history of transient ischemic attack (TIA), and cerebral infarction without residual deficits; Z91.14 Patient's other noncompliance with medication regimen; Z68.34 Body mass index [BMI] 34.0-34.9, adult; Z98.890 Other specified postprocedural states; Z88.8 Allergy status to other drugs, medicaments and biological substances
CPT/HCPCS: 99285; C8929; 36415; 70450; 70551; 71010; 80048; 80061; 82947; 83036; 84484; 85027; 93005; 93880; J1650; J1815; 92610